=== PATIENT | male | born 1960 | race American Indian/Alaskan Native ===

== ENCOUNTER 2018-03-14 12:05 | Emergency (ER) | payer OTHER ==
[2018-03-14 12:14] VITALS: PULSE 71; RESP 18; TEMP 98.5; O2SAT 98
--- NOTE | 2018-03-14 12:36 | ED PDOC ---
Upper Extremity Pain/Injury Time Seen by Provider: 03/14/18 12:17 Chief Complaint (Nursing): Finger,Hand,&Wrist Chief Complaint (Provider): Finger Pain History Per: Patient History/Exam Limitations: no limitations Additional Complaint(s): 57 year old right hand dominant male presents to the ED complaining of right middle finger pain for about 6 months. Patient reports he was [place] last [place] him an injection into the finger for the pain which did help. Pain is now worse prompting ED visit. Patient denies any recent trauma or injury. No fever or chills. PMD: none Past Medical History Reviewed: Historical Data, Nursing Documentation, Vital Signs Vital Signs: Last Vital Signs Temp 98.5 F 03/14/18 12:12 Pulse 71 03/14/18 12:12 Resp 18 03/14/18 12:12 BP 175/85 H 03/14/18 12:12 Pulse Ox 98 03/14/18 12:12 - Medical History PMH: No Chronic Diseases - Surgical History Other surgeries: Left ankle surgery - Family History Family History: States: No Known Family Hx - Living Arrangements Living Arrangements: With Family - Social History Current smoker - smoking cessation education provided: No Alcohol: None Drugs: Denies - Allergies Allergies/Adverse Reactions: Allergies Allergy/AdvReac Type Severity Reaction Status Date / Time No Known Allergies Allergy Verified 03/14/18 12:12 Review of Systems ROS Statement: Except As Marked, All Systems Reviewed And Found Negative Constitutional: Negative for: Fever Musculoskeletal: Positive for: Other (Right middle finger pain) Physical Exam - Reviewed Nursing Documentation Reviewed: Yes Vital Signs Reviewed: Yes - Physical Exam Appears: Positive for: Well, Non-toxic, No Acute Distress Head Exam: Positive for: ATRAUMATIC, NORMOCEPHALIC Skin: Positive for: Normal Color. Negative for: Rash Eye Exam: Positive for: Normal appearance Extremity: Positive for: Normal ROM, Other (Unremarkable exam of right hand, full rom of all digits, no swelling or tenderness) Neurologic/Psych: Positive for: Alert, Oriented. Negative for: Motor/Sensory Deficits - ECG O2 Sat by Pulse Oximetry: 98 (RA) Pulse Ox Interpretation: Normal - Other Rad X-ray right hand X-Ray: Interpreted by Me, Viewed By Me X-Ray Interpretation: no fx, no dis Medical Decision Making Medical Decision Making: Initial Impression: 57 y/o with right middle finger pain Initial Plan: --Right hand X-ray Patient given copies of x-rays and was referred to hand specialist on-call. Advised ibuprofen for pain as needed. Scribe Attestation: Documented by Jc Newton acting as a scribe for Tyesha HINOJOSA. Provider Scribe Attestation: All medical record entries made by the Scribe were at my direction and personally dictated by me. I have reviewed the chart and agree that the record accurately reflects my personal performance of the history, physical exam, medical decision making, and the department course for this patient. I have also personally directed, reviewed, and agree with the discharge instructions and disposition. Procedures - Splinting Location: right 3rd digit Pre-Made Type: metal (metallic splint right 3rd digit) Pre-Proc Neuro Vasc Exam: normal Post-Proc Neuro Vasc Exam: normal Disposition - Clinical Impression Clinical Impression: Finger pain - Patient ED Disposition Is Patient to be Admitted: No Counseled Patient/Family Regarding: Studies Performed, Diagnosis, Need For Followup - Disposition Referrals: Lizette James MD [Staff Provider] - Disposition: Routine/Home Disposition Time: 13:00 Condition: STABLE Additional Instructions: Ibuprofen for pain as needed. Follow-up with hand specialist or orthopedist for further evaluation. Instructions: Muscle and Bone Pain (DC), Finger Sprain (DC) Forms: [employer] ([employer])
[2018-03-14 12:55] VITALS: BP 150/80
--- NOTE | 2018-03-14 13:06 | RAD ---
PROCEDURE: Right Hand Radiographs. HISTORY: pain to 3rd digit for 1 month COMPARISON: None. FINDINGS: BONES: No acute fracture. JOINTS: Unremarkable. SOFT TISSUES: Normal. OTHER FINDINGS: None. IMPRESSION: No demonstrated fracture or dislocation.
== END 2018-03-14 13:09 | disposition home or self-care (01) ==
LOC: H.ER 12:05
DX: M79.644 Pain in right finger(s) (principal)